=== PATIENT | female | born 1945 | race Caucasian/White ===

== ENCOUNTER → 2021-04-18 | Outpatient (CLI) | payer OTHER ==
[~2021-04-18] MED LIST: ALBUTEROL1.25 MG/3 INH; CELEBREX100 MG PO; COZAAR100 MG PO; HYDROCODON-ACE1 EAC4 PO; IBUPROFEN600 MG PO; LEVOTHYROXINE125 MC1 PO; LIPITOR20 MG PO; LOPRESSOR 25 MG25 MG PO; NORVASC5 MG PO; OMEPRAZOLE20 M1 PO; PREDNISONE20 MG PO; PROAIR HFA8.5 GM INH; SPIRIVA18 MCG INH; VITAMIN D21250 MCG PO; ZOLOFT100 MG PO; ZYRTEC10 MG PO
[2021-04-18 13:18] LABS: HEMOGLOBIN 13.3 gm/dl (12.3-15.3); RED BLOOD COUNT 4.69 M/UL (4.00-5.10); WHITE BLOOD COUNT 6.9 K/UL (4.5-11.0)
[2021-04-18 13:48] LABS: BUN/CREATININE RATIO 24 (0-10)
[2021-04-19 07:11] LABS: HBSAG SCREEN Negative (Negative); HEP B CORE AB, TOT Negative (Negative); RHEUMATOID ARTHRITIS FACTOR <10.0 IU/mL (0.0-13.9); VITAMIN D, 25-HYDROXY 56.7 ng/mL (30.0-100.0)
[2021-04-19 08:14] LABS: HCV AB <0.1 (0.0-0.9)
[2021-04-20 00:12] LABS: CCP ANTIBODIES IGG/IGA 4 units (0-19)
[2021-04-21 06:11] LABS: QUANTIFERON MITOGEN VALUE >10.00 IU/mL (.); QUANTIFERON NIL VALUE 0.02 IU/mL (.); QUANTIFERON-TB GOLD PLUS Negative (Negative)
== END ==
LOC: LAB 12:07
PROVIDERS: Nurse Practitioner Family
DX: Z11.59 Encounter for screening for other viral diseases (principal); M06.9 Rheumatoid arthritis, unspecified; M81.0 Age-related osteoporosis without current pathological fracture; M25.50 Pain in unspecified joint; I10 Essential (primary) hypertension; Z79.899 Other long term (current) drug therapy; D89.9 Disorder involving the immune mechanism, unspecified; R76.8 Other specified abnormal immunological findings in serum
CPT/HCPCS: 36415; 80053; 82550; 83520; 85025; 85652; 86140; 86200; 86431; 86704; 86803; 87340

== ENCOUNTER → 2021-05-02 | Outpatient (CLI) | payer OTHER ==
[2021-05-02 10:47] LABS: BUN/CREATININE RATIO 26 (0-10)
== END ==
LOC: OPSV2 09:00
PROVIDERS: Anesthesiology
DX: Z01.818 Encounter for other preprocedural examination (principal); I51.7 Cardiomegaly; R94.31 Abnormal electrocardiogram [ECG] [EKG]
CPT/HCPCS: 36415; 80048; 93005

== ENCOUNTER → 2021-05-11 | Day surgery (SDC) | payer OTHER ==
[~2021-05-11] VITALS: Ht 157.5 cm; Wt 43.1 kg
== END | disposition home or self-care (01) ==
LOC: OR 07:23
PROVIDERS: Surgery
PROC: 03BT0ZX Excision of Left Temporal Artery, Open Approach, Diagnostic (ICD-10-PCS; principal; 2021-05-11 07:30)
DX: R51.9 Headache, unspecified (principal); G89.29 Other chronic pain; I10 Essential (primary) hypertension; I25.2 Old myocardial infarction; J44.9 Chronic obstructive pulmonary disease, unspecified; K21.9 Gastro-esophageal reflux disease without esophagitis; E03.9 Hypothyroidism, unspecified; M19.90 Unspecified osteoarthritis, unspecified site; F17.210 Nicotine dependence, cigarettes, uncomplicated; E78.00 Pure hypercholesterolemia, unspecified; M81.0 Age-related osteoporosis without current pathological fracture; M35.3 Polymyalgia rheumatica; M06.9 Rheumatoid arthritis, unspecified; Z86.73 Personal history of transient ischemic attack (TIA), and cerebral infarction without residual deficits; Z88.0 Allergy status to penicillin; Z79.1 Long term (current) use of non-steroidal anti-inflammatories (NSAID); Z79.52 Long term (current) use of systemic steroids; Z79.2 Long term (current) use of antibiotics; Z79.899 Other long term (current) drug therapy
CPT/HCPCS: J2405; J2704; J3010; J7120

== ENCOUNTER → 2021-05-30 | Outpatient (CLI) | payer OTHER | LOC: EXRD 10:28 | DX: Z11.59 Encounter for screening for other viral diseases (principal); M81.0 Age-related osteoporosis without current pathological fracture | CPT/HCPCS: 77080 ==